=== PATIENT | male | born 1955 | race Caucasian/White ===

== ENCOUNTER 2019-01-22 09:41 | Emergency (ER) | payer OTHER ==
[~2019-01-22] VITALS: Ht 172.7 cm; Wt 99.8 kg
[~2019-01-22 09:41] MED LIST: CLARITIN-D 24 H1 TA1; HYTRIN 5 M5 MG/1 CAP; LISINOPRIL10 MG; LOFIBRA160 MG; NAPROXEN DELAY500 M1 PO; SIMVASTATIN40 MG; TOBRADEX ST EYE5 ML OP; WELCHOL 625 MG625 M1
[2019-01-22] MEDS ORDERED: COLESTIPOL HCL1 G1 PO (10:10)
[2019-01-22] MEDS ORDERED: ACETAMINOPHEN-1 EAC1 PO (10:49)
[2019-01-22 10:58] VITALS: BP 139/91
== END 2019-01-22 10:59 | disposition home or self-care (01) ==
LOC: M.ERS 09:41
DX: S05.02XA Injury of conjunctiva and corneal abrasion without foreign body, left eye, initial encounter (principal); I10 Essential (primary) hypertension; E78.00 Pure hypercholesterolemia, unspecified; X58.XXXA Exposure to other specified factors, initial encounter; Y93.89 Activity, other specified; Y92.89 Other specified places as the place of occurrence of the external cause; Y99.8 Other external cause status